=== PATIENT | male | born 1950 | race Hispanic/Latino ===

== ENCOUNTER 2017-01-16 23:47 | Observation (INO) | payer SELFPAY ==
--- NOTE | 2017-01-16 23:58 | ED PDOC ---
Arrival/HPI - General Historian: Patient - History of Present Illness Time/Duration: 1-3 hours Activities at Onset: Light Context: Street <Sarath Arguelles - Last Filed: 01/17/17 05:51> <Raji Yan Jr. - Last Filed: 01/17/17 07:30> - General Time Seen by Provider: 01/16/17 23:49 - History of Present Illness Narrative History of Present Illness (Text): 01/16/17 23:55 Patient is a 69 year old male who was brought to emergency department via EMS for public intoxication. According to EMS, patient was roaming aimlessly in the streets. Admits to drinking alcohol throughout the day. Denies any somatic or psychiatric complaints. (Sarath Arguelles) Past Medical History - Provider Review Nursing Documentation Reviewed: Yes <Sarath Arguelles - Last Filed: 01/17/17 05:51> Family/Social History - Physician Review Nursing Documentation Reviewed: Yes Family/Social History: No Known Family HX <Sarath Arguelles - Last Filed: 01/17/17 05:51> Allergies/Home Meds <Sarath Arguelles - Last Filed: 01/17/17 05:51> <Raji Yan Jr. - Last Filed: 01/17/17 07:30> Allergies/Adverse Reactions: Allergies No Known Allergies Allergy (Verified 01/16/17 23:59) Home Medications: Home Meds Medication Instructions Recorded Confirmed No Known Home Med 01/16/17 01/16/17 Review of Systems - Review of Systems Systems not reviewed;Unavailable: Intoxicated <Sarath Arguelles - Last Filed: 01/17/17 05:51> Physical Exam Vital Signs Reviewed: Yes Temperature: Afebrile Blood Pressure: Normal Pulse: Regular Respiratory Rate: Normal Appearance: Positive for: Well-Appearing, Comfortable Pain Distress: None Mental Status: Positive for: Alert and Oriented X 3 - Systems Exam Head: Present: Atraumatic, Normocephalic Pupils: Present: PERRL Conjunctiva: Present: Normal Respiratory/Chest: Present: Clear to Auscultation, Good Air Exchange. No: Respiratory Distress, Accessory Muscle Use Cardiovascular: Present: Regular Rate and Rhythm, Normal S1, S2. No: Murmurs Abdomen: Present: Normal Bowel Sounds. No: Tenderness, Distention, Peritoneal Signs Upper Extremity: Present: Other (10 cm superficial abrasion to right arm ) Lower Extremity: Present: Normal Inspection. No: Edema Neurological: Present: GCS=15, CN II-XII Intact, Speech Normal Skin: Present: Warm, Dry, Normal Color. No: Rashes Psychiatric: Present: Alert, Oriented x 3 <Sarath Arguelles - Last Filed: 01/17/17 05:51> Vital Signs Temp Pulse Resp BP Pulse Ox 01/17/17 06:00 84 19 124/74 100 01/17/17 04:00 88 18 118/74 99 01/17/17 00:00 98.6 F 96 H 18 126/82 97 Medical Decision Making - Lab Interpretations I have reviewed the lab results: Yes <Sarath Arguelles - Last Filed: 01/17/17 05:51> <Raji Yan Jr. - Last Filed: 01/17/17 07:30> ED Course and Treatment: 01/16/17 23:59 Impression: A 69 y/o male presenting to ed for public intoxication. Plan: -- CT Head -- EKG -- Alcohol level -- Labs Progress Notes: 01/17/17 01:30 Alcohol level of 406. Will place patient on EDOBS for intoxication. (Sarath Arguelles) 01/17/17 07:27 Pt s/o to me by ED attending Dr. Sarath Arguelles. Pt with dx of alcohol intoxication. Pt is now clinically sober--gait normal. Will d/c home soon. ( Raji Yan Jr.) - Lab Interpretations Lab Results: 01/17/17 00:15 01/17/17 00:15 Lab Results 01/17/17 00:15: WBC 7.7, RBC 4.12, Hgb 13.2 L, Hct 39.0 L, MCV 94.7, MCH 32.0, MCHC 33.8, RDW 14.5, Plt Count 212, MPV 9.3, Gran % 57.1, Lymph % (Auto) 31.9, Josephine % (Auto) 9.5 H, Eos % (Auto) 1.2 L, Baso % (Auto) 0.3, Gran # 4.39, Lymph # 2.5, Josephine # 0.7 H, Eos # 0.1, Baso # 0.02, Sodium 145, Potassium 4.2, Chloride 103, Carbon Dioxide 31, Anion Gap 15, BUN 11, Creatinine 0.8, Est GFR ( Amer) > 60, Est GFR (Non-Af Amer) > 60, Random Glucose 105, Calcium 9.6 , Total Bilirubin 0.5, AST 44, ALT 34, Alkaline Phosphatase 66, Troponin I < 0.01, Total Protein 9.2 H, Albumin 4.9 H, Globulin 4.3, Albumin/Globulin Ratio 1.1, Alcohol, Quantitative 406 H* ED OBSERVATION Date of observation admission: 01/17/17 Time of observation admission: 01:30 <Sarath Arguelles - Last Filed: 01/17/17 05:51> <Raji Yan Jr. - Last Filed: 01/17/17 07:30> - Observation admission statement Patient is being placed in observation because:: alcohol intoxication (Sarath Arguelles) - Goals of Observation Goals of observation are:: awaiting sobriety and reassess. (Sarath Arguelles) - Progress Note Progress Note: 01/17/17 03:30 Sinus Tachycardia @ 104 bpm. Normal [place]. Normal interval. 01/17/17 05:30 Patient currently resting comfortably with no acute distress. stable vitals. (Sarath Arguelles) - Scribe Statement The provider has reviewed the documentation as recorded by the Scribe <Sarath Arguelles - Last Filed: 01/17/17 05:51> <Raji Yan Jr. - Last Filed: 01/17/17 07:30> - Scribe Statement Willian Hansen (Sarath Arguelles) Provider Attestation: All medical record entries made by the Scribe were at my direction and personally dictated by me. I have reviewed the chart and agree that the record accurately reflects my personal performance of the history, physical exam, medical decision making, and the department course for this patient. I have also personally directed, reviewed, and agree with the discharge instructions and disposition. (Sarath Arguelles) Disposition/Present on Arrival <Sarath Arguelles - Last Filed: 01/17/17 05:51> - Present on Arrival Any Indicators Present on Arrival: No - Disposition Have Diagnosis and Disposition been Completed?: Yes Disposition Time: 07:29 Patient Plan: Discharge <Raji Yan Jr. - Last Filed: 01/17/17 07:30> - Disposition Diagnosis: Alcohol intoxication Disposition: HOME/ ROUTINE Patient Problems: Current Active Problems Problem Status Diagnosed Alcohol intoxication Acute Condition: IMPROVED
[2017-01-17 00:02] VITALS: BMI 25.8
[2017-01-17 00:22] LABS: ADD MANUAL DIFF? NO
[2017-01-17 00:27] LABS: BASO # 0.02 K/mm3 (0.0-2.0); BASO % 0.3 % (0.0-3.0); EOS # 0.1 (0.0-0.7); EOS % 1.2 % (1.5-5.0); GRAN # 4.39 (1.4-6.5); GRAN % 57.1 % (50.0-68.0); LYMPH # 2.5 (1.2-3.4); LYMPH % 31.9 % (22.0-35.0); MEAN CELL VOLUME 94.7 fL (80.0-105.0); MEAN CORPUSCULAR HGB CONC 33.8 g/dl (31.0-37.0); MEAN PLATELET VOLUME 9.3 fl (7.0-11.0); MONO # 0.7 (0.1-0.6); MONO % 9.5 % (1.0-6.0); PLATELET COUNT 212 10^3/uL (120.0-450.0); RED CELL DISTRIBUTION WIDTH 14.5 % (11.5-14.5); WHITE BLOOD COUNT 7.7 10^3/ul (4.5-11.0)
[2017-01-17 00:37] LABS: ALB/GLOB RATIO 1.1 (1.1-1.8); ALKALINE PHOSPHATASE 66 U/L (38-133); ALT/SGPT 34 U/L (7-56); AST/SGOT 44 U/L (15-59); BILIRUBIN,TOTAL 0.5 mg/dL (0.2-1.3); BLOOD UREA NITROGEN 11 mg/dL (7-21); CALCIUM 9.6 mg/dL (8.4-10.5); CARBON DIOXIDE 31 mmol/L (21-33); CHLORIDE 103 mmol/L (98-107); GFR AFRICAN-AMERICAN > 60; GLUCOSE,RANDOM 105 mg/dL (70-110); POTASSIUM 4.2 mmol/L (3.6-5.0); SODIUM 145 mmol/L (132-148); TOTAL PROTEIN 9.2 g/dL (5.8-8.3)
[2017-01-17 01:06] LABS: TROPONIN I < 0.01 ng/mL
[2017-01-17 07:30] VITALS: BP 121/69; PULSE 86; RESP 18; TEMP 97.9; O2SAT 95
--- NOTE | 2017-01-17 12:07 | CARD ---
APPROVED REPORT EKG Measurement Heart [id number] <Conclusion> Sinus tachycardia Otherwise normal ECG
== END 2017-01-17 07:29 | disposition home or self-care (01) ==
LOC: ED 23:47 → EROBSV 01-17 01:39 → EDBD 01-17 01:39
PROVIDERS: ADMIT Emergency Medicine; ATTEND Emergency Medicine
DX: F10.129 Alcohol abuse with intoxication, unspecified (principal); Y90.8 Blood alcohol level of 240 mg/100 ml or more
CPT/HCPCS: 80053; 84484; 85025; 93005; 99283; G0378; G0480